=== PATIENT | female | born 1995 | race Caucasian/White ===

== ENCOUNTER 2021-11-13 22:13 | Emergency (ER) | payer SELFPAY ==
[~2021-11-13] VITALS: Ht 167.7 cm; Wt 113.8 kg
[~2021-11-13 22:13] MED LIST: ACHD5005 PO; DCS100C PO; FAMO-119 PO; IBP600T1 PO; PREN1TAB25 PO; SULF-222 PO; SULF1TAB38 PO; TRM50T PO
[2021-11-13] MEDS ORDERED: diphenhydrAMINE 50 MG/ML INJ (BENADRYL) IVP STA (22:24)
[2021-11-13] MEDS ORDERED: EPINEPHrine INJECTION 1 MG/ML AMP IM STA (22:24)
[2021-11-13] MEDS ORDERED: LORazepam INJ 2 MG/ML (ATIVAN) VIAL IVP STA (22:24)
[2021-11-13] MEDS ORDERED: methylPREDNISolone 125 MG (Solu-MEDROL) VIAL IVP STA (22:24)
--- NOTE | 2021-11-13 22:28 | ED General ---
General Stated Complaint: FULL BODY RASH;FEVER Source of Information: Patient History of Present Illness Date Seen by Provider: Nov 13, 2021 Time Seen by Provider: 22:16 Initial Comments 26-year-old female presents with generalized urticarial rash and fever with nausea and vomiting. She states this has been going on throughout the day. She reports having an allergy to multiple trees and plants. She has had these episodes happening every 3 to 4 months. She does not know what causes or brings them on. She tried taking Benadryl and ibuprofen about 45 minutes prior to arrival and kept it down for 10 to 15 minutes before vomiting. She states that in the past usually the rash continues to the point that her throat swelled shut and they give her epi and then send her home. She denied being given steroids in the past. She states that she has had this happen multiple times in the past and it is always associated with fever, nausea, vomiting. Timing/Duration: 12-24 Hours Severity: Severe Associated Systoms: No Chest Pain, No Cough, No Diaphoresis; Fever/Chills; No Headaches, No Loss of Appetite; Malaise, Nausea/Vomiting, Rash; No Seizure, No Shortness of Air, No Syncope; Weakness Allergies and Home Medications Allergies Coded Allergies: No Known Drug Allergies (Unverified , 04/20/15) Patient Home Medication List Home Medication List Reviewed: Yes Ondansetron (Ondansetron Odt) 4 Mg Tab.rapdis, 4 MG PO Q6H PRN for NAUSEA/VOMITING Prescribed by: RAEGAN PAPPAS on 11/14/2146 Prednisone (Prednisone) 20 Mg Tab, 40 MG PO DAILY Prescribed by: RAEGAN PAPPAS on 11/14/2146 Sulfamethoxazole/Trimethoprim (Sulfamethoxazole-Tmp Ds Tablet) 1 Each Tablet, 1 EACH PO BID Prescribed by: DARCY BROOKS on 09/30/161812 Review of Systems Review of Systems Constitutional: chills, fever, malaise, weakness EENTM: no symptoms reported Respiratory: no symptoms reported Cardiovascular: palpitations Gastrointestinal: nausea, vomiting Genitourinary: No dysuria : No Skin: rash (generalized urticaria), other (burning pain to skin from urticaria) Psychiatric/Neurological: Anxiety Immunological/Allergic: grass allergy, pollen allergy Past Lsknsfv-Bdwvin-Dtoifb Hx Patient Social History Tobacco Use?: No Use of E-Cig and/or Vaping dev: No Substance use?: No Alcohol Use?: No Immunizations Up To Date Tetanus Booster (TDap): Less than 5yrs PED Vaccines UTD: No Seasonal Allergies Seasonal Allergies: No Past Medical History Surgery/Hospitalization HX: Recurrent Urticarial rash with fever, n/v Section, Tonsillectomy Respiratory: No Cardiac: No Neurological: No Reproductive Disorders: No Genitourinary: No Gastrointestinal: No Musculoskeletal: No Endocrine: No HEENT: No Loss of Vision: Denies Cancer: No Psychosocial: No Integumentary: Yes (recurrent urticaria) Adverse Reaction/Blood Tranf: No Family Medical History Arthritis GRANDPARENTS Asthma 19 MOTHER Diabetes mellitus GRANDPARENTS FH: ovarian cancer 19 MOTHER Respiratory disorder GRANDPARENTS (LUNG CANCER) Thyroid disease 19 MOTHER No Family History of: AIDS Abdominal aortic aneurysm [place]'s disease Alcoholism Alzheimer's disease Cancer of mouth Cardiovascular disease Cataracts Colon cancer Completed stroke Dementia Drug abuse Glaucoma Hypertension Kidney disease Myocardial infarction Parkinson's disease Prostate cancer Seizure disorder Severe allergy Tuberculosis Visual disorder No Pertinent Family Hx Physical Exam Vital Signs Vital Signs - First Documented 11/13/21 22:16 Temp 37.5 Pulse 154 Resp 22 B/P (MAP) 157/92 (113) Pulse Ox 99 O2 Delivery Room Air Capillary Refill : Height, Weight, BMI Height: 5'6" Weight: 210lbs. 0.0oz. [id number]; 44.87 BMI Method:Stated General Appearance: Anxious, Mild Distress, Obese Eyes: Bilateral Eye PERRL, Bilateral Eye EOMI HEENT: PERRL/EOMI, Normal ENT Inspection, Pharynx Normal, Moist Mucous Membranes Neck: Full Range of Motion, Normal Inspection, Supple Respiratory: Chest Non Tender, Lungs Clear, Normal Breath Sounds, No Accessory Muscle Use, No Respiratory Distress Cardiovascular: Normal Peripheral Pulses, Tachycardia Gastrointestinal: Normal Bowel Sounds, No Pulsatile Mass, Non Tender, Soft Rectal: Deferred Extremity: Normal Capillary Refill, Normal Inspection, No Pedal Edema Neurologic/Psychiatric: Alert, Oriented x3, airport ramp agent II-XII Norm as Tested Skin: Warm/Dry, Rash (diffuse urticarial rash) Focused Exam Lactate Level 11/13/21 22:35: Lactic Acid Level 1.20 Lactic Acid Level Laboratory Tests Test 11/13/21 22:35 Lactic Acid Level 1.20 MMOL/L (0.50-2.00) Progress/Results/Core Measures Suspected Sepsis SIRS Temperature: Pulse: Respiratory Rate: Laboratory Tests 11/13/21 22:30: White Blood Count 8.5 Blood Pressure / Mean: 11/13/21 22:35: Lactic Acid Level 1.20 Laboratory Tests 11/13/21 22:30: Creatinine 0.59L, INR Comment 0.9, Platelet Count 386, Total Bilirubin 0.5 Results/Orders Lab Results Laboratory Tests Test 11/13/21 22:30 11/13/21 22:35 Range/Units White Blood Count 8.5 4.3-11.0 10^3/uL Red Blood Count 5.72 H 3.80-5.11 10^6/uL Hemoglobin 15.9 11.5-16.0 g/dL Hematocrit 47 35-52 % Mean Corpuscular Volume 83 80-99 fL Mean Corpuscular Hemoglobin 28 25-34 pg Mean Corpuscular Hemoglobin Concent 34 32-36 g/dL Red Cell Distribution Width 15.4 H 10.0-14.5 % Platelet Count 386 130-400 10^3/uL Mean Platelet Volume 9.0 9.0-12.2 fL Immature Granulocyte % (Auto) 0 % Neutrophils (%) (Auto) 66 42-75 % Lymphocytes (%) (Auto) 25 12-44 % Monocytes (%) (Auto) 9 0-12 % Eosinophils (%) (Auto) 0 0-10 % Basophils (%) (Auto) 0 0-10 % Neutrophils # (Auto) 5.6 1.8-7.8 X 10^3 Lymphocytes # (Auto) 2.1 1.0-4.0 X 10^3 Monocytes # (Auto) 0.7 0.0-1.0 X 10^3 Eosinophils # (Auto) 0.0 0.0-0.3 10^3/uL Basophils # (Auto) 0.0 0.0-0.1 10^3/uL Immature Granulocyte # (Auto) 0.0 0.0-0.1 10^3/uL Prothrombin Time 12.9 12.2-14.7 SEC INR Comment 0.9 0.8-1.4 Activated Partial Thromboplast Time 39 H 24-35 SEC Sodium Level 136 135-145 MMOL/L Potassium Level 4.1 3.6-5.0 MMOL/L Chloride Level 100 98-107 MMOL/L Carbon Dioxide Level 22 21-32 MMOL/L Anion Gap 14 5-14 MMOL/L Blood Urea Nitrogen 6 L 7-18 MG/DL Creatinine 0.59 L 0.60-1.30 MG/DL Estimat Glomerular Filtration Rate 128 BUN/Creatinine Ratio 10 Glucose Level 119 H 70-105 MG/DL Calcium Level 9.5 8.5-10.1 MG/DL Corrected Calcium 9.1 8.5-10.1 MG/DL Total Bilirubin 0.5 0.1-1.0 MG/DL Aspartate Amino Transf (AST/SGOT) 19 5-34 U/L Alanine Aminotransferase (ALT/SGPT) 18 0-55 U/L Alkaline Phosphatase 125 40-136 U/L Troponin I < 0.30 <0.30 NG/ML C-Reactive Protein 1.96 H <0.50 MG/DL Total Protein 8.0 6.4-8.2 GM/DL Albumin 4.5 3.2-4.5 GM/DL Lactic Acid Level 1.20 0.50-2.00 MMOL/L My Orders Orders - RAEGAN PAPPAS MD Monitor-Rhythm Ecg Trace Only (11/13/21 22:24) Ed Iv/Invasive Line Start (11/13/21 22:24) Urine Bedside (11/13/21:24) Cbc With Automated Diff (11/13/21 22:24) Comprehensive Metabolic Panel (11/13/21 22:24) Crp Fs (11/13/21 22:24) Troponin I Fs (11/13/21 22:24) Protime With Inr (11/13/21:24) Partial Thromboplastin Time (11/13/21 22:24) Ekg Tracing (11/13/21 22:24) Ns Iv 1000 Ml (Sodium Chloride 0.9%) (11/13/21 22:30) Acetaminophen Tablet/Caplet (Tylenol T (11/13/21 22:30) Ondansetron Injection (Zofran Injectio (11/13/21 22:30) Epinephrine 1 Mg Injection (Adrenalin I (11/13/21 22:24) Blood Culture (11/13/21 22:24) Lactic Acid Analyzer (11/13/21 22:24) Methylprednisolone Sod Succ (Solu-Medrol (11/13/21 22:24) Diphenhydramine Injection (Benadryl Inje (11/13/21 22:24) Lorazepam Injection (Ativan Injection) (11/13/21 22:24) Ns Iv 1000 Ml (Sodium Chloride 0.9%) (11/14/21 00:30) Dexamethasone Injection (Decadron Inje (11/14/21 00:30) Famotidine Injection (Pepcid Injection) (11/14/21 00:30) Medications Given in ED Current Medications Medications Dose Ordered Sig/Nato Route Start Time Stop Time Status Last Admin Dose Admin Acetaminophen 650 mg ONCE ONCE PO 11/13/21 22:30 11/13/21 22:31 DC 11/13/21 22:54 650 MG Ondansetron HCl 4 mg ONCE ONCE IV 11/13/21 22:30 11/13/21 22:31 DC 11/13/21 22:37 4 MG Vital Signs/I&O 11/13/21 11/14/21 22:16 01:52 Temp 37.5 Pulse 154 102 Resp 22 18 B/P (MAP) 157/92 (113) 111/58 Pulse Ox 99 96 O2 Delivery Room Air Room Air 11/14/21 00:00 Intake Total 1000 ml Balance 1000 ml Capillary Refill : Progress Note #1: Progress Note Check basic labs including blood cultures with lactic acid since she was having a fever at home. Give IV fluids for hydration, Zofran for nausea, Solu-Medrol for urticarial rash, Benadryl for urticarial rash and itching, epinephrine for urticarial rash and itching and sensation of throat swelling, Ativan for anxiety and rash. Obtain electrocardiogram for tachycardia. Telemetry monitoring for tachycardia and fever Progress Note #2: Time: 23:01 Progress Note Labs appear stable without acute significant abnormality. Her lactic acid is not elevated. Her white blood cell count is normal as well. She is currently on her menstrual cycle and was having heavy bleeding and was unable to provide a urine specimen without blood. The electrocardiogram and telemetry monitoring shows sinus tachycardia without ischemia. Will continue with hydration and medications. Give a little time for the medicines to try and start helping and see if she needed repeat doses of steroid or Benadryl to help with her urticarial and allergic reaction. Progress Note #3: Time: 00:27 Progress Note On recheck the patient was resting comfortably in the room. She felt that the itching and rash was improving. She did not appear to be as red or swollen as she was when she first arrived. Her heart rate was still tachycardic in the 110's so will give an additional liter normal saline for hydration, repeat a steroid dose, give a dose of Pepcid for an H2 paul in addition to the H1 blockade she already has with the Benadryl. Anticipate discharge to home after these medications and fluids infused. Progress Note #4: Progress Note On recheck at time of discharge patient's rash and itching was significantly improved. She was feeling better and was not having any further nausea or sensation of swelling in her throat. She was a little sleepy and groggy from the medications but was able to walk from the department on her own without assistance. Counseled on follow-up and return precautions. Advised to establish and follow-up through the clinic for continued concerns ECG Initial ECG Impression Date: Nov 13, 2021 Initial ECG Impression Time: 22:29 Initial ECG Rate: 127 Initial ECG Rhythm: S.Tach Initial ECG Comparisson: No Previous ECG Available Comment Sinus tachycardia with a heart rate of 127 bpm. [place] interval [address] elevation. QT interval 322 ms with a QTc interval 469 ms. There is no prior tracing available for comparison. Departure Impression Primary Impression: Urticarial rash Additional Impression: Allergic reaction Qualified Codes: T78.40XA - Allergy, unspecified, initial encounter Disposition: 01 HOME, SELF-CARE Condition: Improved Departure-Patient Inst. Decision time for Depature: 00:40 Referrals: NO,LOCAL PHYSICIAN (PCP) Primary Care Physician [facility] Patient Instructions: Allergic Reaction ED Add. Discharge Instructions: Continue taking Zofran for your nausea and to help keep your stomach settled Take Benadryl and steroids to help with rash and itching. Follow up with clinic for continued concerns Scripts Prednisone (Prednisone) 20 Mg Tab 40 MG PO DAILY for allergic reaction for 4 Days, #8 TAB 0 Refills Prov: RAEGAN PAPPAS MD 11/14/21 Ondansetron (Ondansetron Odt) 4 Mg Tab.rapdis 4 MG PO Q6H PRN for NAUSEA/VOMITING for 4 Days, #16 TAB 0 Refills Prov: RAEGAN PAPPAS MD 11/14/21 RAEGAN PAPPAS MD Nov 13, 2021 22:28
[2021-11-13] MEDS ORDERED: NS IV 1000 ML 1,000 ML IV SCH (22:30)
[2021-11-13] MEDS ORDERED: ACETAMINOPHEN 325 MG TABLET PO ONE (22:30)
[2021-11-13] MEDS ORDERED: ONDANSETRON 4 MG/2 ML (SDV) Z0FRAN IV ONE (22:30)
[2021-11-13 22:33] LABS: BASOPHILS % (AUTO) 0 % (0-10); EOSINOPHILS % (AUTO) 0 % (0-10); HEMATOCRIT 47 % (35-52); HEMOGLOBIN 15.9 g/dL (11.5-16.0); LYMPHOCYTES % (AUTO) 25 % (12-44); MEAN CORPUSCULAR HEMOGLOBIN 28 pg (25-34); MEAN CORPUSCULAR HGB CONC 34 g/dL (32-36); MEAN CORPUSCULAR VOLUME 83 fL (80-99); MONOCYTES % (AUTO) 9 % (0-12); NEUTROPHILS % (AUTO) 66 % (42-75); PLATELET COUNT 386 10^3/uL (130-400); WHITE BLOOD COUNT 8.5 10^3/uL (4.3-11.0)
[2021-11-13 22:34] LABS: LYMPHOCYTES # (AUTO) 2.1 X 10^3 (1.0-4.0); MONOCYTES # (AUTO) 0.7 X 10^3 (0.0-1.0); NEUTROPHILS # (AUTO) 5.6 X 10^3 (1.8-7.8)
[2021-11-13 22:43] LABS: INR 0.9 (0.8-1.4); PROTHROMBIN TIME PATIENT 12.9 SEC (12.2-14.7)
[2021-11-13 22:50] LABS: BILIRUBIN,TOTAL 0.5 MG/DL (0.1-1.0); BUN/CREATININE RATIO 10; CALCIUM 9.5 MG/DL (8.5-10.1); CARBON DIOXIDE 22 MMOL/L (21-32); CHLORIDE 100 MMOL/L (98-107); CREATININE SERUM 0.59 MG/DL (0.60-1.30); GFR ESTIMATED 128; GLUCOSE 119 MG/DL (70-105); POTASSIUM 4.1 MMOL/L (3.6-5.0); SODIUM 136 MMOL/L (135-145)
[2021-11-13 22:51] LABS: ALANINE AMINOTRANSFERASE 18 U/L (0-55); ALBUMIN 4.5 GM/DL (3.2-4.5); ALKALINE PHOSPHATASE 125 U/L (40-136)
[2021-11-14] MEDS ORDERED: FAMOTIDINE 20MG/2ML IV (PEPCID) IVP STA (00:30)
[2021-11-14] MEDS ORDERED: NS IV 1000 ML 1,000 ML IV STA (00:30)
[2021-11-14] MEDS ORDERED: PRD20T PO (00:47)
[2021-11-14] MEDS ORDERED: ONDA4TAB11 PO (00:47)
[2021-11-14 01:52] VITALS: BP 111/58
== END 2021-11-14 01:52 | disposition home or self-care (01) ==
LOC: EDUNIT# 22:13 → ER FS 22:15
DX: L50.9 Urticaria, unspecified (principal); T78.40XA Allergy, unspecified, initial encounter; E66.9 Obesity, unspecified; Z68.41 Body mass index [BMI] 40.0-44.9, adult
CPT/HCPCS: 36415; 80053; 83605; 84484; 85025; 85610; 85730; 86141; 87040; 93005; 93041; 96361; 96372; 96374; 96375